=== PATIENT | female | born 1965 | race Caucasian/White ===

== ENCOUNTER 2018-04-02 07:37 | Day surgery (SDC) | payer OTHER ==
[2018-03-29 11:49] VITALS: BMI 25.7
[2018-04-02] MEDS ORDERED: MIDAZOLAM HCL 2 MG/2 ML SINGLE DOSE VIAL ONE (08:43)
[2018-04-02] MEDS ORDERED: PROPOFOL 20 ML ONE ×2 (08:43→10:45)
[2018-04-02] MEDS ORDERED: ERYTHROMYCIN 0.5% OPHTHALMIC OINTMENT 3.5 GM TUBE ONE (08:44)
[2018-04-02] MEDS ORDERED: BUPIVACAINE HCL/PF 0.5% (5MG/ML) 10 ML VIAL ONE (08:44)
[2018-04-02] MEDS ORDERED: POVIDONE-IODINE 5% OPHTHALMIC PREP 30 ML SOLUTION ONE (08:44)
[2018-04-02] MEDS ORDERED: TETRACAINE 0.5% OPHTH SOLN 2 ML BOTTLE ONE (08:44)
[2018-04-02] MEDS ORDERED: LIDOCAINE 1%/EPI 1:100000 (20 ML MULTI DOSE VIAL) ONE (08:45)
[2018-04-02] MEDS ORDERED: ONDANSETRON 4 MG/2 ML VIAL ONE ×2 (09:43→10:59)
[2018-04-02] MEDS ORDERED: DEXAMETHASONE SOD PHOSPHATE 4 MG/1 ML VIAL ONE (09:43)
[2018-04-02] MEDS ORDERED: ceFAZolin SODIUM 1 GM VIAL ONE (09:43)
[2018-04-02] MEDS ORDERED: ONDANSETRON 4 MG/2 ML VIAL IVPUSH PRN (11:00)
[2018-04-02] MEDS ORDERED: LACTATED RINGERS SOLUTION 1,000 ML IV SCH (11:00)
[2018-04-02] MEDS ORDERED: oxyCODONE HCL 5 MG TABLET PO PRN (11:00)
--- NOTE | 2018-04-02 11:37 | OP ---
DATE OF OPERATION: 04/02/2018 PREOPERATIVE DIAGNOSIS: Basal cell carcinoma, right lower lid. POSTOPERATIVE DIAGNOSIS: Basal cell carcinoma, right lower lid, status post Mohs excision. PROCEDURE: 1. Full-thickness wedge resection of right lower lid. 2. Reconstruction of right lower lid with lateral canthal advancement flap and right lateral canthoplasty. SURGEON: Abiola Leos MD ANESTHESIA: Local with sedation. COMPLICATIONS: None. ESTIMATED BLOOD LOSS: 5-10 mL. DESCRIPTION OF OPERATION: Patient was brought to the operating room, placed on the operating room table. Vital signs were monitored by Anesthesia. Tetracaine was placed in both eyes. The wound was photographed. Following which, a timeout was performed. A small lateral canthal rotation flap was marked, and the patient was given a 50/50 mixture of 2% Xylocaine with 1:100,000 epinephrine and 0.5% Marcaine in the right lower lid centrally surrounding the defect and at the right lateral canthus down to periosteum and beyond that, for a total of 5 mL. Patient was prepped and draped in usual sterile fashion, exposing both eyes. A full-thickness wedge resection surrounding the defect in the lower lid was accomplished to regularize the edges which were somewhat erratic, and this left a defect that primary closure would result in excess tension and shortening of the horizontal phimosis. Therefore, a small lateral canthal rotation flap was developed by incising with a 15 blade and then carried down beneath the muscle layer with a Pimentel scissor. The muscle was dissected off of the superior mariza, lateral canthal tendon and the inferior mariza was released from the orbital rim and this allowed rotary advancement of the lateral portion of the eyelid so that the primary defect could be closed. It was closed with 3 interrupted 6-0 silk sutures, one through the lash line, one through the posterior junction, and a vertical mattress suture through the yanes line. These were then looped superiorly, and the tarsal plate was closed with interrupted 6-0 Vicryl, and the muscle layer was closed with interrupted 5-0 chromic suture, and this completed the anastomosis. The lid was everted, demonstrating good approximation of the tarsus with no sutures protruding. Standing cutaneous deformity was excised at the inferior end of the incision, and the wound was closed with interrupted 6-0 plain sutures with plastic technique. A ruler was then used to measure the horizontal width of the palpebral fissure, and it was made to be 30 mm on each side. The lateral canthus was reformed with a 5-0 chromic buried. The yanes line of the upper and lower lid. Lateral to this, the skin-muscle flap was secured to the fascia outside the orbital rim with a supportive 5-0 Vicryl suture, and then, the skin was closed with interrupted 6-0 plain suture with meticulous attention to plastic technique, creating a nice, almond-shaped lateral canthus. Erythromycin ointment was then placed in the eye and on the sutures of the lower lid and lateral canthus, and the patient was taken to recovery room in stable condition. ABIOLA LEOS M.D. MIKAL/[id number]
[2018-04-02 12:23] VITALS: TEMP 98.4
[2018-04-02 13:21] VITALS: BP 117/65; PULSE 60
--- NOTE | 2018-04-04 15:49 | PATH ---
Surgical Pathology Report Patient Name: MARGI CASTLE [facility]. Rec. #: [id number] /Age/Gender: 1965 (Age: 52) / F Account: [id number] Location: [facility] AM[facility]UL[facility]ORY Taken: 04/02/2018 Received: 04/02/2018 Reported: 04/04/2018 Physicians: Leonardo Salinas Specimen(s) Received RIGHT LOWER EYELID Clinical History Basal cell cancer right lower eyelid Final Diagnosis RIGHT LOWER EYELID, BIOPSY: SKIN AND ADJACENT SKELETAL MUSCLE WITH ULCERATION AND ACUTE INFLAMMATION. NEGATIVE FOR CARCINOMA. Electronically Signed Alexandra Rodriguez M.D. Gross Description Received in formalin labeled "right lower eyelid," is a 0.7 x 0.3 cm billy, elliptical, unoriented portion of skin excised to depth of 0.2 cm. The epidermal surface displays a 0.3 x 0.2 x 0.2 cm billy polypoid lesion. The base is inked green and the specimen is trisected. The specimen is entirely submitted in 2 cassettes as follows: 1-undesignated tips; 2-central portion of specimen. /04/02/2018 saudi04/02/2018
== END 2018-04-02 13:20 | disposition home or self-care (01) ==
LOC: FASU 07:37
PROVIDERS: ATTEND Ophthalmology
PROC: 08BQ0ZZ Excision of Right Lower Eyelid, Open Approach (ICD-10-PCS; principal; 2018-04-02 09:00)
DX: C44.1122 Basal cell carcinoma of skin of right lower eyelid, including canthus (principal)
CPT/HCPCS: 84703; 88305-TC; 94760